=== PATIENT | male | born 1960 | race Caucasian/White ===

== ENCOUNTER → 2023-06-19 07:28 | Outpatient (REF) | payer BC, SELFPAY | LOC: RAD 07:28 | PROVIDERS: ATTENDING PHYSICIAN Surgery Vascular Surgery; FAMILY PHYSICIAN Family Medicine | DX: I73.9 Peripheral vascular disease, unspecified (principal) | CPT/HCPCS: 93922; 93925; 93978 ==

== ENCOUNTER → 2023-09-14 07:50 | Outpatient (REF) | payer BC, SELFPAY | LOC: RAD 07:50 | PROVIDERS: ATTENDING PHYSICIAN Surgery Vascular Surgery; FAMILY PHYSICIAN Family Medicine | DX: I73.9 Peripheral vascular disease, unspecified (principal) | CPT/HCPCS: 93922; 93925; 93978 ==

== ENCOUNTER → 2024-03-28 07:56 | Outpatient (REF) | payer BC, SELFPAY | LOC: RAD 07:56 | PROVIDERS: ATTENDING PHYSICIAN Registered Nurse; FAMILY PHYSICIAN Family Medicine | DX: I73.9 Peripheral vascular disease, unspecified (principal) | CPT/HCPCS: 93922; 93925; 93978 ==

== ENCOUNTER 2025-02-03 02:45 | Emergency (ER) | payer BC, SELFPAY ==
[2025-02-03 02:59] VITALS: BP 143/71
[2025-02-03 03:06] LABS: Hematocrit 39.8 % (39.0-52.0); Hemoglobin 13.2 g/dL (13.0-18.0); Mean Corp Hgb Conc. 33.2 g/dL (33.0-37.0); Mean Corpuscular Volume 86.7 fL (80.0-94.0); Nucleated Red Blood Cells % 0 % (-); Platelet Count 177 10^3/uL (130-400); Red Cell Dist. Width 13.8 % (11.5-14.5)
[2025-02-03 03:32] LABS: ALT (SGPT) 25 U/L (0-50); AST (SGOT) 23 U/L (17-59); Albumin 4.2 g/dl (3.5-5.0); Alkaline Phosphatase 73 U/L (38-126); Blood Urea Nitrogen 27 mg/dl (9-20); Calcium 9.3 mg/dl (8.4-10.2); Carbon Dioxide 25 mmol/L (22-30); Chloride 106 mmol/L (98-107); Glucose 138 mg/dl (70-99); Potassium 4.9 mmol/L (3.5-5.1); Sodium 137 mmol/L (135-145); Total Protein 6.8 g/dl (6.3-8.2); eGFR > 60.00
[2025-02-03 03:44] LABS: Troponin I < 0.012 ng/ml
[2025-02-03 06:16] VITALS: BP 139/70
--- NOTE | 2025-02-03 06:31 | ED.GENMED ---
History of Present Illness
General
Chief Complaint: Chest Pain
Source: patient
Exam Limitations: none
Time Seen by Provider: 02/03/25 06:18
History of Present Illness
History of Present Illness:
64-year-old male with history of vascular disease, CHF, hypertension on Plavix presents with the onset of chest discomfort yesterday afternoon. The pain is left-sided made worse with motion. He denies any pleuritic component. There was no
associated nausea or diaphoresis. Pain did not radiate to the back or down the arm. No recent travel or surgery. No new leg swelling. No other complaints at this time
Past History
Past History
ED Past Medical History: CHF and HTN
ED Past Surgical History: None
Social History
Tobacco: Former smoker
Alcohol: Daily
Drug: None
Personal:
Living: with family
Employment: Employed
Family History
Family History: Other (Noncontributory)
Phy Exam
Physical Exam
Physical Exam:
General: Well-appearing male no acute respiratory distress
HEENT normal cephalic atraumatic
Heart: Regular rate and rhythm
Lungs: Clear no wheeze
Abdomen is soft nontender
Musculoskeletal exam: Mildly reproducible discomfort to the left anterior superior chest wall
Extremities: Mild edema bilateral lower extremity
Scores
Heart Score for Chest Pain Patients
STEMI patient?: No
History: Slightly or Non-Suspicious
ECG: Normal
Age: >45 - <65 years
Risk Factors: 1 or 2 Risk Factors
Troponin: </= Normal Limit
Heart Score for Chest Pain Patients: 2
Heart Score Risk: 2.5% MACE over next 6 weeks
Course
Orders/Labs/Results
Orders:
Orders
02/03/25 02:47
Electrocardiogram (*1) Urgent
Reason for Study: Other
Other Reason for Exam: Respiratory Distress
Cardiac Monitoring- Treatment ONCE
EKG- Treatment ONCE
IV Insert/Care/Rem.- Treatment PRN
CR Chest - 2 Views Urgent
Comment:
Reason For Exam: respiratory distress
O2 Therapy [RESP] Urgent
Titrate/Wean O2 to maintain O2 sat greater than (%): 93
Special Instructions: TO MAINTAIN CONTINUOUS O2 SATS >/= 93%
Pulse Ox/cont/shift [RESP] Urgent
Quantity: 1
Special Instructions: continuous pulse ox
02/03/25 02:56
Complete Blood Count/With Diff Urgent
Comprehensive Metabolic Panel Urgent
NT-proBNP Urgent
Troponin I Urgent
02/03/25 06:49
Troponin I Urgent
Abnormal Lab Results
02/03/25
02:56
WBC 11.2 H 10^3/uL
(4.8-10.8)
RBC 4.59 L 10^6/uL
(4.70-6.10)
MPV 10.8 H fL
(7.4-10.4)
Abs Immat Gran (auto) 0.1 H 10^3/uL
(0-0.05)
Absolute Neuts (auto) 6.9 H 10^3/uL
(1.4-6.5)
Absolute Monos (auto) 1.5 H 10^3/uL
(0.1-0.6)
Immature Gran % 0.6 H %
(0-0.5)
Monocytes % 13.5 H %
(1.7-9.3)
BUN 27 H mg/dl
(9-20)
Glucose 138 H mg/dl
(70-99)
02/03/25 02:56
02/03/25 02:56
Vital Signs
Initial and Last Documented VS:
Initial Vital Signs
Temp Pulse Resp BP Pulse Ox
98.2 F 69 20 143/71 98
02/03/25 02:59 02/03/25 02:59 02/03/25 02:59 02/03/25 02:59 02/03/25 02:59
Last Documented Vital Signs
Temp Pulse Resp BP Pulse Ox
98.2 F 55 13 109/98 97
02/03/25 02:59 02/03/25 07:15 02/03/25 07:15 02/03/25 07:00 02/03/25 07:15
MDM/Problems Addressed
Differential Diagnosis Includes:
Chest pain. Consider chest wall strain versus PE versus ACS. No risk factors for PE and has stable vital signs, this is unlikely. EKG shows sinus rhythm without ischemic changes. Initial troponin is undetectable. Repeat troponin pending. I am
reassured by the reproducibility of this discomfort that is likely a chest wall related discomfort.
*Pulse Oximetry
SaO2: 98
Oxygen Mode of Delivery: Room air
Patient hypoxic: no
*Critical Care Note
Total Time (30-74mins, 75-104mins- exclusive of procedures): Not Applicable
Update Note
Update Note:
Initial and repeat troponin both undetectable. I cyst chest wall strain as source of discomfort given reproducibility. Nonetheless, will refer to cardiology as outpatient for chest pain follow-up. Recommended Tylenol or ibuprofen if needed
otherwise. Stable for discharge
ED Attending Note
-
Portions of this chart may have been created with voice recognition software.� Occasional wrong word or��sound alike� substitutions may have occurred due to the inherent limitations of voice recognition software.
Discharge Plan
Departure
Patient Disposition: Home (Routine Discharge)
Date of Disposition: 02/03/25
Time of Disposition: 07:40
Patient with high blood pressure during this ER visit?: No
Discharge Problem:
Chest pain
Instructions: Costochondritis (DC), Chest Pain CBC Follow Up
Prescriptions:
No Action
enalapril maleate 10 MG tablet
10 mg PO BID
lovastatin 40 MG tablet
40 mg PO QPM
aspirin 81 MG tablet,delayed release (DR/EC)
81 mg PO DAILY
acetaminophen 325 MG tablet
650 mg PO Q4HPRN PRN (Reason: mild pain or temp >/= 100.4F) 0RF
carvedilol [Coreg] 25 mg Tablet
25 mg PO BID
clopidogrel 75 MG tablet
75 mg PO DAILY
allopurinol 300 mg Tablet
400 mg PO DAILY
hydralazine 50 mg Tablet
50 mg PO BID
Referrals:
Gladis Parra DO [Family Provider, Family Practice]
Activity Restrictions/Additional Instructions:
You may use Tylenol if needed for pain. Return here for worsening symptoms otherwise follow-up with your doctor podiatric medicine
Interventions
Interventions:
*General Assessment Last Done: 02/03/25 02:59
*Neglect/Abuse Screening Last Done: 02/03/25 02:59
*ED COVID-19 Vaccine History Last Done: 02/03/25 02:59
*ED Influenza Vaccine History Last Done: 02/03/25 02:59
[facility] Fall Risk Assessment Tool Last Done: 02/03/25 06:43
*Risk Screen - Suicide (C-SSRS) Last Done: 02/03/25 02:59
ED- Cardiac Assessment Last Done: 02/03/25 06:41
Discharge Date and Time
Print Language: ROMANSH
[2025-02-03 06:43] VITALS: BMI 32.3
[2025-02-03 07:00] VITALS: BP 109/98
[2025-02-03 07:20] LABS: Troponin I < 0.012 ng/ml
== END 2025-02-03 08:05 | disposition home or self-care (01) ==
LOC: EMR 02:45
PROVIDERS: Emergency Medicine; Physician Assistant; EMERGENCY PHYSICIAN Emergency Medicine; FAMILY PHYSICIAN Family Medicine
DX: R07.9 Chest pain, unspecified (principal); I11.0 Hypertensive heart disease with heart failure; I50.9 Heart failure, unspecified; I99.9 Unspecified disorder of circulatory system; Z79.02 Long term (current) use of antithrombotics/antiplatelets; Z87.891 Personal history of nicotine dependence
CPT/HCPCS: 99284; 71046; 80053; 83880; 84484; 85025; 93005